=== PATIENT | female | born 1990 | race Caucasian/White ===

== ENCOUNTER 2024-08-31 18:21 | Observation (INO) | payer OTHER ==
[2024-08-31 18:56] VITALS: BP 148/77; PULSE 103; RESP 16; TEMP 98.1; O2SAT 99
[2024-08-31 19:16] LABS: ALBUMIN 3.4 g/dL (3.5-5.0); ANION GAP 11.2 MEQ/L (5-15); BILIRUBIN,TOTAL 0.3 mg/dL (0.2-1.3); Calcium 9.4 mg/dL (8.4-10.2); Creatinine 1 0.5 mg/dL (0.52-1.04); EST GLOMERULAR FILTRATION RATE 126.1 ML/MIN; Total Protein 6.5 g/dL (6.3-8.2)
== END 2024-08-31 19:55 | disposition home or self-care (01) ==
LOC: OB.NST 18:21 → OB 18:41
PROVIDERS: ADMIT Obstetrics & Gynecology; ATTEND Obstetrics & Gynecology
DX: O24.415 Gestational diabetes mellitus in pregnancy, controlled by oral hypoglycemic drugs (principal); Z3A.35 35 weeks gestation of pregnancy
CPT/HCPCS: 36415; 59025; 80053; 83036; 99213; G0378

== ENCOUNTER 2024-09-04 16:24 | Observation (INO) | payer OTHER ==
[2024-09-04 16:51] LABS: Absolute Neutrophil Ct (ANC) 10.29 x10^3/uL (1.56-6.13); BASOPHIL % 0.2 % (0.1-1.2); Basophil (Absolute #) 0.03 x10^3/uL (0.01-0.08); Eosinophil % 0.7 % (0.7-5.8); Hematocrit 34.9 % (34.1-44.9); Hemoglobin 11.9 g/dL (11.2-15.7); IMMATURE GRAN # 0.08 x10^3u/L (0.001-0.031); IMMATURE GRAN % 0.5 % (0.001-0.429); Lymphocyte (Absolute #) 3.37 x10^3/uL (1.18-3.74); Lymphocytes % 22.7 % (19.3-51.7); Mean Cell Volume 83.5 fL (79.4-94.8); Mean Corpuscular Hemoglobin 28.5 pg (25.6-32.2); Mean Corpuscular Hgb Concent. 34.1 g/dL (32.2-35.5); Mean Platelet Volume 10.1 fL (9.4-12.3); Monocyte (Absolute #) 0.99 x10^3/uL (0.24-0.86); Monocytes % 6.7 % (4.7-12.5); Neutrophil % 69.2 % (34.0-71.1); Platelet Count 321 x10^3/uL (182-369); Red Blood Count 4.18 x10^6/uL (3.93-5.22); Red Cell Distribution Width 14.3 % (11.7-14.4); White Blood Count 14.9 x10^3/uL (3.98-10.04)
[2024-09-04 17:04] LABS: ALBUMIN 3.7 g/dL (3.5-5.0); ANION GAP 10.1 MEQ/L (5-15); BILIRUBIN,TOTAL 0.4 mg/dL (0.2-1.3); Creatinine 1 0.52 mg/dL (0.52-1.04); Potassium 4.1 mmol/L (3.5-5.1); Total Protein 6.9 g/dL (6.3-8.2); Uric Acid 4.8 mg/dL (2.6-6.0)
[2024-09-04 17:06] VITALS: RESP 14; TEMP 98; O2SAT 98
[2024-09-04 17:17] LABS: Appearance Clear (Clear); Bacteria None Seen /HPF (None Seen); Bilirubin Negative (Negative); Blood Negative (Negative); Epithelial Cells None Seen /HPF (None Seen); Glucose, Urine Negative (Negative); Hyaline Casts NONE SEEN /LPF (0-2); Ketones Negative (Negative); Leukocyte Esterase Negative (Negative); Nitrite Negative (Negative); Protein,Urine Dip Negative (Negative); RBC 0-2 /HPF (0-5); Specific Gravity <=1.005 (1.005-1.030); Urobilinogen 0.2 mg/dL (0.2); WBC 0-2 /HPF (0-5)
[2024-09-04 17:49] LABS: Creatinine, Urine Random 30.6 mg/dl; Protein Creatinine Ratio, Ran. 0.78 mg/mg (0.0-0.15)
[2024-09-04 18:58] VITALS: BP 143/76; PULSE 89
== END 2024-09-04 18:40 | disposition home or self-care (01) ==
LOC: OB 16:24
PROVIDERS: ADMIT Obstetrics & Gynecology; ATTEND Obstetrics & Gynecology
DX: Z34.83 Encounter for supervision of other normal pregnancy, third trimester (principal); Z3A.36 36 weeks gestation of pregnancy
CPT/HCPCS: 36415; 59025; 80053; 81001; 82570; 83615; 84156; 84550; 85025; 99213; G0378; G0379

== ENCOUNTER 2024-09-05 12:07 | Observation (INO) | payer OTHER ==
[2024-09-05 13:04] LABS: BASOPHIL % 0.2 % (0.1-1.2); Basophil (Absolute #) 0.03 x10^3/uL (0.01-0.08); Eosinophil % 0.6 % (0.7-5.8); Eosinophil (Absolute #) 0.09 x10^3/uL (0.04-0.36); Hematocrit 33.1 % (34.1-44.9); Hemoglobin 11.2 g/dL (11.2-15.7); IMMATURE GRAN # 0.07 x10^3u/L (0.001-0.031); IMMATURE GRAN % 0.5 % (0.001-0.429); Lymphocyte (Absolute #) 2.85 x10^3/uL (1.18-3.74); Mean Cell Volume 83.4 fL (79.4-94.8); Mean Corpuscular Hemoglobin 28.2 pg (25.6-32.2); Mean Corpuscular Hgb Concent. 33.8 g/dL (32.2-35.5); Monocyte (Absolute #) 0.74 x10^3/uL (0.24-0.86); Monocytes % 5.2 % (4.7-12.5); Neutrophil % 73.5 % (34.0-71.1); Platelet Count 262 x10^3/uL (182-369); Red Blood Count 3.97 x10^6/uL (3.93-5.22); Red Cell Distribution Width 14.3 % (11.7-14.4); White Blood Count 14.3 x10^3/uL (3.98-10.04)
[2024-09-05 13:08] VITALS: RESP 16
[2024-09-05 13:18] LABS: ALBUMIN 3.4 g/dL (3.5-5.0); ANION GAP 12.7 MEQ/L (5-15); BILIRUBIN,TOTAL 0.4 mg/dL (0.2-1.3); Calcium 9.5 mg/dL (8.4-10.2); Creatinine 1 0.48 mg/dL (0.52-1.04); EST GLOMERULAR FILTRATION RATE 127.4 ML/MIN; Potassium 3.8 mmol/L (3.5-5.1); Total Protein 6.5 g/dL (6.3-8.2); Uric Acid 4.5 mg/dL (2.6-6.0)
[2024-09-05 13:27] LABS: Appearance Clear (Clear); Bilirubin Negative (Negative); Blood Negative (Negative); Epithelial Cells Moderate /HPF (None Seen); Glucose, Urine 250 mg/dL (Negative); Ketones Trace (Negative); Leukocyte Esterase Negative (Negative); Nitrite Negative (Negative); Protein,Urine Dip 30 (Negative); RBC 0-2 /HPF (0-5); Specific Gravity >=1.030 (1.005-1.030)
[2024-09-05 13:28] LABS: Bacteria Rare /HPF (None Seen); Hyaline Casts 0-2 /LPF (0-2); Protein Creatinine Ratio, Ran. 0.15 mg/mg (0.0-0.15); WBC 0-2 /HPF (0-5)
[2024-09-05 14:48] VITALS: TEMP 98.6
[2024-09-05 14:50] VITALS: BP 152/75; PULSE 101; O2SAT 97
== END 2024-09-05 14:30 | disposition home or self-care (01) ==
LOC: OB 12:07
PROVIDERS: ADMIT Obstetrics & Gynecology; ATTEND Obstetrics & Gynecology
DX: O24.415 Gestational diabetes mellitus in pregnancy, controlled by oral hypoglycemic drugs (principal); Z3A.36 36 weeks gestation of pregnancy
CPT/HCPCS: 36415; 80053; 81001; 82570; 84156; 84550; 85025; G0378; G0379

== ENCOUNTER 2024-09-09 05:38 | Inpatient (IN) | payer OTHER ==
[2024-09-09 06:26] LABS: Absolute Neutrophil Ct (ANC) 9.54 x10^3/uL (1.56-6.13); BASOPHIL % 0.2 % (0.1-1.2); Basophil (Absolute #) 0.03 x10^3/uL (0.01-0.08); Eosinophil (Absolute #) 0.14 x10^3/uL (0.04-0.36); Hemoglobin 11.1 g/dL (11.2-15.7); IMMATURE GRAN # 0.07 x10^3u/L (0.001-0.031); IMMATURE GRAN % 0.5 % (0.001-0.429); Lymphocyte (Absolute #) 3.83 x10^3/uL (1.18-3.74); Lymphocytes % 26.4 % (19.3-51.7); Mean Cell Volume 82.9 fL (79.4-94.8); Mean Corpuscular Hemoglobin 27.9 pg (25.6-32.2); Mean Corpuscular Hgb Concent. 33.6 g/dL (32.2-35.5); Mean Platelet Volume 10.1 fL (9.4-12.3); Monocyte (Absolute #) 0.89 x10^3/uL (0.24-0.86); Monocytes % 6.1 % (4.7-12.5); Neutrophil % 65.8 % (34.0-71.1); Platelet Count 273 x10^3/uL (182-369); Red Blood Count 3.98 x10^6/uL (3.93-5.22); Red Cell Distribution Width 14.5 % (11.7-14.4); White Blood Count 14.5 x10^3/uL (3.98-10.04)
[2024-09-09 06:36] LABS: Appearance Clear (Clear); Bacteria None Seen /HPF (None Seen); Bilirubin Negative (Negative); Blood Negative (Negative); Epithelial Cells Rare /HPF (None Seen); Glucose, Urine Negative (Negative); Hyaline Casts NONE SEEN /LPF (0-2); Ketones Negative (Negative); Leukocyte Esterase Negative (Negative); Nitrite Negative (Negative); Protein,Urine Dip Negative (Negative); RBC 0-2 /HPF (0-5); Urobilinogen 0.2 mg/dL (0.2); WBC 0-2 /HPF (0-5)
[2024-09-09] MEDS: Lactated Ringers 1,000 ML IV SCH (06:38)
[2024-09-09 06:47] LABS: ALBUMIN 3.4 g/dL (3.5-5.0); BILIRUBIN,TOTAL 0.4 mg/dL (0.2-1.3); Calcium 9.5 mg/dL (8.4-10.2); Creatinine 1 0.51 mg/dL (0.52-1.04); EST GLOMERULAR FILTRATION RATE 125.5 ML/MIN; Potassium 3.5 mmol/L (3.5-5.1); Total Protein 6.4 g/dL (6.3-8.2); Uric Acid 5.4 mg/dL (2.6-6.0)
[2024-09-09] MEDS ORDERED: Nubain 10 MG/ML IV PRN (07:00)
[2024-09-09] MEDS ORDERED: Zofran 4 MG/2 ML VIAL IV PRN (07:00)
[2024-09-09 07:16] LABS: ABO TYPING A; Antibody Screen NEGATIVE (NEGATIVE); RH TYPING POSITIVE
[2024-09-09] MEDS ORDERED: Ephedrine Sulfate 50 MG/ML IV PRN (10:00)
[2024-09-09] MEDS ORDERED: OMNIPEN 1 GM*** 1 GM in Sodium Chloride 100ML MINI-BAG PLUS 100 ML IV SCH (11:00)
[2024-09-09 14:03] LABS: Creatinine, Urine Random 68.8 mg/dl; Protein Creatinine Ratio, Ran. 0.25 mg/mg (0.0-0.15)
[2024-09-09 14:15] LABS: Amphetamine,Urine NEGATIVE (NEGATIVE); Barbiturate,Urine NEGATIVE (NEGATIVE); Benzodiazepine,Urine NEGATIVE (NEGATIVE); Cocaine,Urine NEGATIVE (NEGATIVE); Methadone,Urine NEGATIVE (NEGATIVE); Opiate,Urine NEGATIVE (NEGATIVE); PCP,Urine NEGATIVE (NEGATIVE); THC,Urine NEGATIVE (NEGATIVE)
[2024-09-09] MEDS ORDERED: PITOCIN 30 UNITS/ LR 500 ML 30 UNITS/500 ML PLAST..BAG IV SCH (17:00)
[2024-09-09] MEDS ORDERED: XYLOCAINE 1% HCL 20 ML MDV IJ PRN (17:00)
[2024-09-09] MEDS: Trandate 100 MG PO SCH (17:27)
[2024-09-09] MEDS: STADOL 2 MG IV PRN (19:26)
[2024-09-09 21:44] LABS: AMNISURE TEST RESULTS POSITIVE (NEGATIVE)
[2024-09-09] MEDS: OMNIPEN 2 GM*** 2 G in Sodium Chloride 100ML MINI-BAG PLUS 100 ML IV ONE (22:00)
[2024-09-09] MEDS ORDERED: OMNIPEN 2 GM ONE (22:03)
[2024-09-09] MEDS ORDERED: Sodium Chloride 100ML MINI-BAG PLUS 100 ML IV ONE (22:04)
[2024-09-09] MEDS: FENTANYL 2 MCG-BUPIV 0.125%-NS 250 ML Epidur 250 ML EPIDURAL SCH (22:20)
[2024-09-09] MEDS: Lactated Ringers 1,000 ML IV ONE (22:21)
[2024-09-09] MEDS ORDERED: SUBLIMAZE 100 MCG/2 ML ONE (23:13)
[2024-09-09] MEDS ORDERED: XYLOCAINE 2%/Epi 1:200000 20ML VIAL MPF ONE (23:13)
[2024-09-10] MEDS ORDERED: NORCO 5/325 MG PO PRN (00:26)
[2024-09-10] MEDS: Dermoplast Spray TP PRN (01:45)
[2024-09-10] MEDS: CORTISONE 1% CREAM TP PRN (01:46)
[2024-09-10] MEDS: LANSINOH 40 GM TOP PRN (01:47)
[2024-09-10] MEDS: TUCKS TP PRN (01:48)
[2024-09-10] MEDS: TYLENOL EXTRA STRENGTH 500 MG PO PRN ×2 (02:11→18:21)
--- NOTE | 2024-09-10 08:07 | PCM.NOTE ---
Date and Time: 09/10/24804 Subjective Assessment: ppd 1 sp pt resting in bed and doing well. hx of gdm and gest htn on labetolol 200mg bid. vss afebrile abd; soft uterus; firm lochia; mild a/p sp ppd 1 with gst htn and gest diabetes stable today will monitor bp anticipate discharge tomorrow Objective Data Vital Signs: Vital Signs - 24 hr Temp Pulse Resp BP BP Pulse Ox 09/10/24 06:00 97.6 F 74 20 168/77 97 09/10/24 02:09 98.2 F 86 18 124/58 97 09/10/24 02:00 98.6 F 87 18 124/58 96 09/10/24 01:30 98.6 F 82 18 142/57 97 09/10/24 01:13 18 148/68 96 09/10/24 01:00 98.6 F 97 H 18 158/83 97 09/10/24 00:45 85 18 133/69 97 09/10/24 00:30 98.6 F 82 18 156/74 97 09/10/24 00:15 99 H 20 137/63 97 09/10/24 00:00 98.4 F 108 H 18 130/58 100 09/09/24 23:00 96 H 20 175/77 96 09/09/24 20:00 88 20 134/63 98 09/09/24 19:00 98.3 F 85 20 132/61 98 09/09/24 18:00 98.3 F 80 20 128/61 128/58 98 09/09/24 17:00 98.3 F 85 20 122/58 98 09/09/24 16:00 98.3 F 90 20 136/65 98 09/09/24 15:00 98.3 F 91 H 20 136/65 96 09/09/24 14:00 98.0 F 98 H 20 120/58 128/58 98 09/09/24 13:00 98.2 F 82 18 138/67 98 09/09/24 12:00 98.2 F 93 H 18 118/66 99 09/09/24 11:00 98.2 F 18 09/09/24 10:00 98.2 F 92 H 18 120/55 120/55 99 09/09/24 09:00 98.2 F 88 18 122/56 99 Pain Assessment - Last Documented Pain Intensity [Lower Anterior 6 /Posterior] Pain Intensity 6 Pain Scale Used 0-10 Pain Scale Intake and Output: Intake & Output 09/07/24 09/08/24 09/09/24 09/10/24 11:59 11:59 11:59 11:59 Intake Total 4600 Balance 4600 Weight 111.13 kg Lab Results: Lab Results-Last 24 Hours 09/09/24 09/09/24 09/09/24 Range/Units 05:41 06:12 08:00 POC Glucometer 123 H (74 to 106) mg/dL Ur Random Creatinine 68.8 mg/dl U Random Total Protein 17.0 (<12) mg/dl U [place] Prot/Creat Ratio 0.25 H (0.0-0.15) mg/mg Urine Opiates Level NEGATIVE (NEGATIVE) Ur Methadone NEGATIVE (NEGATIVE) Urine Barbiturates NEGATIVE (NEGATIVE) Ur Phencyclidine (PCP) NEGATIVE (NEGATIVE) Urine Amphetamine NEGATIVE (NEGATIVE) U Benzodiazepine Level NEGATIVE (NEGATIVE) Urine Cocaine NEGATIVE (NEGATIVE) Urine Marijuana (THC) NEGATIVE (NEGATIVE) 09/09/24 09/09/24 09/09/24 Range/Units 10:04 12:04 14:04 POC Glucometer 106 78 120 H (74 to 106) mg/dL Ur Random Creatinine mg/dl U Random Total Protein (<12) mg/dl U [place] Prot/Creat Ratio (0.0-0.15) mg/mg Urine Opiates Level (NEGATIVE) Ur Methadone (NEGATIVE) Urine Barbiturates (NEGATIVE) Ur Phencyclidine (PCP) (NEGATIVE) Urine Amphetamine (NEGATIVE) U Benzodiazepine Level (NEGATIVE) Urine Cocaine (NEGATIVE) Urine Marijuana (THC) (NEGATIVE) 09/09/24 09/09/24 09/09/24 Range/Units 16:05 18:01 19:51 POC Glucometer 66 L 104 83 (74 to 106) mg/dL Ur Random Creatinine mg/dl U Random Total Protein (<12) mg/dl U [place] Prot/Creat Ratio (0.0-0.15) mg/mg Urine Opiates Level (NEGATIVE) Ur Methadone (NEGATIVE) Urine Barbiturates (NEGATIVE) Ur Phencyclidine (PCP) (NEGATIVE) Urine Amphetamine (NEGATIVE) U Benzodiazepine Level (NEGATIVE) Urine Cocaine (NEGATIVE) Urine Marijuana (THC) (NEGATIVE) 09/09/24 Range/Units 22:10 POC Glucometer 114 H (74 to 106) mg/dL Ur Random Creatinine mg/dl U Random Total Protein (<12) mg/dl U [place] Prot/Creat Ratio (0.0-0.15) mg/mg Urine Opiates Level (NEGATIVE) Ur Methadone (NEGATIVE) Urine Barbiturates (NEGATIVE) Ur Phencyclidine (PCP) (NEGATIVE) Urine Amphetamine (NEGATIVE) U Benzodiazepine Level (NEGATIVE) Urine Cocaine (NEGATIVE) Urine Marijuana (THC) (NEGATIVE) Assessment/Plan (1) Vaginal delivery Current Visit: Yes Status: Acute Code(s): O80 - ENCOUNTER FOR FULL-TERM UNCOMPLICATED DELIVERY (2) Gestational hypertension Current Visit: Yes Status: Acute Code(s): O13.9 - GESTATIONAL HTN W/O SIGNIFICANT PROTEINURIA, UNSP TRIMESTER (3) Gestational diabetes Current Visit: Yes Status: Acute Code(s): O24.419 - GESTATIONAL DIABETES MELLITUS IN , UNSP CONTROL
[2024-09-10 08:39] LABS: RPR Non Reactive (Non Reactive)
[2024-09-10] MEDS: Docusate Sodium 100 MG PO SCH (12:21)
[2024-09-10 18:42] VITALS: O2SAT 96
[2024-09-11] MEDS ORDERED: TYLENOL EXTRA STRENGTH 500 MG PO PRN (03:24)
[2024-09-11 06:40] LABS: Absolute Neutrophil Ct (ANC) 7.16 x10^3/uL (1.56-6.13); BASOPHIL % 0.2 % (0.1-1.2); Basophil (Absolute #) 0.03 x10^3/uL (0.01-0.08); Eosinophil % 1.5 % (0.7-5.8); Eosinophil (Absolute #) 0.19 x10^3/uL (0.04-0.36); Hematocrit 33.9 % (34.1-44.9); Hemoglobin 11.2 g/dL (11.2-15.7); IMMATURE GRAN # 0.06 x10^3u/L (0.001-0.031); IMMATURE GRAN % 0.5 % (0.001-0.429); Lymphocyte (Absolute #) 4.44 x10^3/uL (1.18-3.74); Lymphocytes % 35.1 % (19.3-51.7); Mean Cell Volume 84.8 fL (79.4-94.8); Mean Platelet Volume 10.1 fL (9.4-12.3); Monocyte (Absolute #) 0.77 x10^3/uL (0.24-0.86); Monocytes % 6.1 % (4.7-12.5); Neutrophil % 56.6 % (34.0-71.1); Platelet Count 267 x10^3/uL (182-369); Red Cell Distribution Width 14.7 % (11.7-14.4); White Blood Count 12.7 x10^3/uL (3.98-10.04)
--- NOTE | 2024-09-11 07:50 | PCM.NOTE ---
Date and Time: 09/11/24747 Subjective Assessment: ppd 2 sp pt resting in bed and doing well without complaints able to ambulate and tolerate diet vss afebrile abd; soft uterus; firm lochia ;mild hgb; 11 a/p sp ppd 2 with gdm and gest htn dc home today fu office next monday will continue labetolol 200mg bid Objective Data Vital Signs: Vital Signs - 24 hr Temp Pulse Resp BP Pulse Ox 09/11/24 06:00 97.8 F 72 20 134/63 09/11/24 02:00 98 F 76 18 144/65 09/10/24 22:00 98.3 F 90 18 09/10/24 18:00 98.1 F 90 14 136/66 96 09/10/24 14:00 98.0 F 86 14 143/68 97 09/10/24 10:00 98.3 F 76 18 127/58 97 Pain Assessment - Last Documented Pain Intensity [Lower Anterior 6 /Posterior] Pain Intensity 0 Pain Scale Used 0-10 Pain Scale Intake and Output: Intake & Output 09/08/24 09/09/24 09/10/24 09/11/24 11:59 11:59 11:59 11:59 Intake Total 4600 500 Balance 4600 500 Weight 111.13 kg Lab Results: Lab Results-Last 24 Hours 09/09/24 09/10/24 09/11/24 Range/Units 06:12 22:21 06:37 WBC 12.7 H (3.98-10.04) x10^3/uL RBC 4.00 (3.93-5.22) x10^6/uL Hgb 11.2 (11.2-15.7) g/dL Hct 33.9 L (34.1-44.9) % MCV 84.8 (79.4-94.8) fL MCH 28.0 (25.6-32.2) pg MCHC 33.0 (32.2-35.5) g/dL RDW 14.7 H (11.7-14.4) % Plt Count 267 (182-369) x10^3/uL MPV 10.1 (9.4-12.3) fL Gran % 56.6 (34.0-71.1) % Immature Gran % (Auto) 0.5 H (0.001-0.429) % Nucleat RBC Rel Count 0.0 (0.00-0.2) % Eos # (Auto) 0.19 (0.04-0.36) x10^3/uL Immature Gran # (Auto) 0.06 H (0.001-0.031) x10^3u/L Absolute Lymphs (auto) 4.44 H (1.18-3.74) x10^3/uL Absolute Monos (auto) 0.77 (0.24-0.86) x10^3/uL Absolute Nucleated RBC 0.00 (0.00-0.012) x10^3u/L Lymphocytes % 35.1 (19.3-51.7) % Monocytes % 6.1 (4.7-12.5) % Eosinophils % 1.5 (0.7-5.8) % Basophils % 0.2 (0.1-1.2) % Absolute Granulocytes 7.16 H (1.56-6.13) x10^3/uL Basophils # 0.03 (0.01-0.08) x10^3/uL POC Glucometer 126 H (74 to 106) mg/dL RPR Non Reactive (Non Reactive) Assessment/Plan (1) Vaginal delivery Current Visit: Yes Status: Acute Code(s): O80 - ENCOUNTER FOR FULL-TERM UNCOMPLICATED DELIVERY (2) Gestational hypertension Current Visit: Yes Status: Acute Code(s): O13.9 - GESTATIONAL HTN W/O SIGNIFICANT PROTEINURIA, UNSP TRIMESTER (3) Gestational diabetes Current Visit: Yes Status: Acute Code(s): O24.419 - GESTATIONAL DIABETES MELLITUS IN , UNSP CONTROL
--- NOTE | 2024-09-11 07:53 | PCM.DS ---
Discharge Summary Date of Admission: 09/09/24 21:39 Admitting Physician: BLU ZHU DO Consults: Consults on Case 09/10/24 00:26 Notify Physician ROUTINE 09/10/24 06:17 Navigation ONCE Primary Care Provider: CRISTA JARQUIN Allergies Allergies diphenhydramine HCl [From Benadryl] Allergy (Unknown, Verified 06/04/24 10:56) Pt reports having allergic reaction in youth to Benadryl. clarithromycin [From Biaxin] Allergy (Verified 06/04/24 10:56) Blisters ibuprofen Allergy (Verified 06/04/24 10:56) states reaction as a child Hospital Summary - Hospital Course Hospital Course: pt admitted at 37 2/7 wks gestation for induction with hx of gdm on insulin and metform not controlled with gest htn on labetolol 200mg bid. pt was induced on sep 09 with vaginal cytotec with subsequent pitocin and delivered live baby girl without complication. during period glucose levels appeared normal w ith normal bp throughout. labs reviewed and normal. pt will continue taking labetolol 200mg bid upon discharge and will fu in office the following monday. all questions answered to her satisfaction and at this time stable for discharge. - Vitals & Intake/Output Vital Signs: Vital Signs Temperature 97.8 F 09/11/24 06:00 Pulse Rate 72 09/11/24 06:00 Respiratory Rate 20 09/11/24 06:00 Blood Pressure 134/63 09/11/24 06:00 O2 Sat by Pulse Oximetry 96 09/10/24 18:00 Intake & Output: Intake & Output 09/08/24 09/09/24 09/10/24 09/11/24 11:59 11:59 11:59 11:59 Intake Total 4600 500 Balance 4600 500 Weight 111.13 kg - Lab Result Diagrams: 09/11/24 06:37 09/09/24 06:12 Lab Results-Last 24 Hrs: Lab Results-Last 24 Hours 09/09/24 09/10/24 09/11/24 Range/Units 06:12 22:21 06:37 WBC 12.7 H (3.98-10.04) x10^3/uL RBC 4.00 (3.93-5.22) x10^6/uL Hgb 11.2 (11.2-15.7) g/dL Hct 33.9 L (34.1-44.9) % MCV 84.8 (79.4-94.8) fL MCH 28.0 (25.6-32.2) pg MCHC 33.0 (32.2-35.5) g/dL RDW 14.7 H (11.7-14.4) % Plt Count 267 (182-369) x10^3/uL MPV 10.1 (9.4-12.3) fL Gran % 56.6 (34.0-71.1) % Immature Gran % (Auto) 0.5 H (0.001-0.429) % Nucleat RBC Rel Count 0.0 (0.00-0.2) % Eos # (Auto) 0.19 (0.04-0.36) x10^3/uL Immature Gran # (Auto) 0.06 H (0.001-0.031) x10^3u/L Absolute Lymphs (auto) 4.44 H (1.18-3.74) x10^3/uL Absolute Monos (auto) 0.77 (0.24-0.86) x10^3/uL Absolute Nucleated RBC 0.00 (0.00-0.012) x10^3u/L Lymphocytes % 35.1 (19.3-51.7) % Monocytes % 6.1 (4.7-12.5) % Eosinophils % 1.5 (0.7-5.8) % Basophils % 0.2 (0.1-1.2) % Absolute Granulocytes 7.16 H (1.56-6.13) x10^3/uL Basophils # 0.03 (0.01-0.08) x10^3/uL POC Glucometer 126 H (74 to 106) mg/dL RPR Non Reactive (Non Reactive) Final Diagnosis/Problem List - Final Discharge Diagnosis/Problem (1) Vaginal delivery Current Visit: Yes Status: Acute Code(s): O80 - ENCOUNTER FOR FULL-TERM UNCOMPLICATED DELIVERY (2) Gestational hypertension Current Visit: Yes Status: Acute Code(s): O13.9 - GESTATIONAL HTN W/O SIGNIFICANT PROTEINURIA, UNSP TRIMESTER (3) Gestational diabetes Current Visit: Yes Status: Acute Code(s): O24.419 - GESTATIONAL DIABETES MELLITUS IN , UNSP CONTROL - Discharge Disposition: Home, Self-Care Condition: Stable Prescriptions: No Action Vits W-Ca,Fe,FA(<1Mg) [] 1 tab PO HS Aspirin EC 81 mg [Ecotrin 81 mg] 1 tab PO DAILY Metformin HCl [Metformin ER Osmotic] 1,000 mg PO BID Lancets 1 QID Labetalol HCl 100 mg [Trandate 100 MG] 2 tab PO BID Insulin Glargine [Lantus Insulin] 21 units SQ BID Ferrous Sulfate [Iron] 325 mg PO DAILY Blood Sugar Diagnostic [Accu-Chek Guide Test Strip] 1 strip QID Follow up with: CRISTA JARQUIN MD [Primary Care Provider] - BLU ZHU DO [ACTIVE STAFF] - 09/18/24 (should fu next monday for bp evaluation and to taper labetolol)
[2024-09-11 09:40] VITALS: RESP 18; TEMP 97.9
[2024-09-11] MEDS: FERREX 150 PO SCH (09:47)
[2024-09-11] MEDS: Adacel Vial IM ONE (09:48)
[2024-09-11 13:45] VITALS: BP 149/74; PULSE 82
== END 2024-09-11 12:44 | disposition home or self-care (01) | DRG 807 ==
LOC: OB 05:38 → OBSVTOIN 21:39 → OB 21:39
PROVIDERS: ADMIT Obstetrics & Gynecology; ATTEND Obstetrics & Gynecology
PROC: 10E0XZZ Delivery of Products of Conception, External Approach (ICD-10-PCS; principal; 2024-09-09)
PROC: 0KQM0ZZ Repair Perineum Muscle, Open Approach (ICD-10-PCS; 2024-09-09)
DX: O24.424 Gestational diabetes mellitus in childbirth, insulin controlled (principal); Z37.0 Single live birth; O13.4 Gestational [pregnancy-induced] hypertension without significant proteinuria, complicating childbirth; O70.1 Second degree perineal laceration during delivery; O69.81X0 Labor and delivery complicated by cord around neck, without compression, not applicable or unspecified; Z3A.37 37 weeks gestation of pregnancy
CPT/HCPCS: 36415; 59025; 80053; 80307; 81001; 82570; 82947; 83615; 84112; 84156; 84550; 85025; 86592; 86850; 86900; 86901; 90715; 96372; 99213; G0378; J0290; J0595; J3010; A9270-GY

== ENCOUNTER 2024-09-13 14:56 | Observation (INO) | payer OTHER ==
[2024-09-13 15:33] LABS: Absolute Neutrophil Ct (ANC) 5.83 x10^3/uL (1.56-6.13); BASOPHIL % 0.3 % (0.1-1.2); Basophil (Absolute #) 0.03 x10^3/uL (0.01-0.08); Eosinophil % 2.8 % (0.7-5.8); Eosinophil (Absolute #) 0.27 x10^3/uL (0.04-0.36); Hematocrit 35.7 % (34.1-44.9); Hemoglobin 11.8 g/dL (11.2-15.7); IMMATURE GRAN # 0.03 x10^3u/L (0.001-0.031); IMMATURE GRAN % 0.3 % (0.001-0.429); Lymphocytes % 28.2 % (19.3-51.7); Mean Cell Volume 84.6 fL (79.4-94.8); Mean Corpuscular Hgb Concent. 33.1 g/dL (32.2-35.5); Mean Platelet Volume 9.6 fL (9.4-12.3); Monocyte (Absolute #) 0.71 x10^3/uL (0.24-0.86); Monocytes % 7.4 % (4.7-12.5); Platelet Count 338 x10^3/uL (182-369); Red Blood Count 4.22 x10^6/uL (3.93-5.22); Red Cell Distribution Width 14.2 % (11.7-14.4); White Blood Count 9.6 x10^3/uL (3.98-10.04)
[2024-09-13] MEDS: Trandate 100 MG PO ONE (15:38)
[2024-09-13 15:44] LABS: ALBUMIN 3.6 g/dL (3.5-5.0); ANION GAP 9.3 MEQ/L (5-15); BILIRUBIN,TOTAL 0.4 mg/dL (0.2-1.3); Calcium 9.1 mg/dL (8.4-10.2); Creatinine 1 0.6 mg/dL (0.52-1.04); EST GLOMERULAR FILTRATION RATE 120.7 ML/MIN; Potassium 4.2 mmol/L (3.5-5.1); Total Protein 6.7 g/dL (6.3-8.2); Uric Acid 5.4 mg/dL (2.6-6.0)
[2024-09-13 15:48] LABS: Appearance Clear (Clear); Bacteria None Seen /HPF (None Seen); Bilirubin Negative (Negative); Blood Large (Negative); Epithelial Cells Rare /HPF (None Seen); Glucose, Urine Negative (Negative); Hyaline Casts NONE SEEN /LPF (0-2); Ketones Negative (Negative); Leukocyte Esterase Trace (Negative); Nitrite Negative (Negative); Ph 6.5 (4.6-8.0); Protein,Urine Dip 30 (Negative); RBC 51-100 /HPF (0-5); Specific Gravity 1.015 (1.005-1.030)
[2024-09-13 15:53] LABS: Creatinine, Urine Random 110.8 mg/dl; Protein Creatinine Ratio, Ran. 0.19 mg/mg (0.0-0.15)
[2024-09-13] MEDS: Adalat CC 30 MG TABLET PO SCH (19:44)
[2024-09-13] MEDS ORDERED: TRANDATE 100MG/20 ML MDV IV PRN (21:37)
[2024-09-13] MEDS ORDERED: APRESOLINE 20 MG/ML INJ IV PRN (21:37)
[2024-09-13] MEDS ORDERED: TRANDATE 100 MG/20 ML MDV FOR DRIP IV ONE ×2 (21:40→22:30)
[2024-09-13] MEDS ORDERED: ECOTRIN 81 MG PO ONE (21:43)
[2024-09-13] MEDS: TRANDATE 100MG/20 ML MDV IV ONE (21:45)
[2024-09-13] MEDS: ECOTRIN 81 MG PO SCH (21:47)
[2024-09-13] MEDS ORDERED: Trandate 100 MG PO SCH (22:00)
[2024-09-13] MEDS: TRANDATE 100MG/20 ML MDV IV PRN (22:31)
[2024-09-13] MEDS: Trandate 100 MG PO SCH (23:07)
[2024-09-14] MEDS ORDERED: TYLENOL 325 MG PO PRN (06:20)
[2024-09-14] MEDS: TYLENOL 325 MG PO PRN (06:23)
[2024-09-14 06:27] LABS: ALBUMIN 3.5 g/dL (3.5-5.0); ANION GAP 10.2 MEQ/L (5-15); BILIRUBIN,TOTAL 0.4 mg/dL (0.2-1.3); Calcium 8.9 mg/dL (8.4-10.2); Creatinine 1 0.57 mg/dL (0.52-1.04); EST GLOMERULAR FILTRATION RATE 122.2 ML/MIN; Potassium 3.7 mmol/L (3.5-5.1); Total Protein 6.5 g/dL (6.3-8.2)
[2024-09-14] MEDS: Trandate 100 MG PO ONE (11:18)
[2024-09-14 12:42] VITALS: BP 142/84; PULSE 89; RESP 17; TEMP 98.3; O2SAT 98
== END 2024-09-14 14:15 | disposition home or self-care (01) ==
LOC: UNDOADMOB 14:56 → MED SURG 14:56 → OB 14:56 → UNDODISOB 09-14 14:15
PROVIDERS: ADMIT Obstetrics & Gynecology; ATTEND Obstetrics & Gynecology
DX: O14.95 Unspecified pre-eclampsia, complicating the puerperium (principal); Z59.811 Housing instability, housed, with risk of homelessness
CPT/HCPCS: 36415; 80053; 81001; 82570; 84156; 84550; 85025; 87077; 87086; 87186; G0378; G0379; A9270-GY